=== PATIENT | female | born 1955 | race Asian ===

== ENCOUNTER 2018-05-09 09:39 | Outpatient (CLI) | payer BC | END 2018-05-09 23:39 | disposition home or self-care (01) | LOC: MAMMO 09:39 | DX: Z12.31 Encounter for screening mammogram for malignant neoplasm of breast (principal) ==

== ENCOUNTER 2019-08-09 08:39 | Outpatient (CLI) | payer BC | END 2019-08-09 20:37 | disposition home or self-care (01) | LOC: MAMMO 08:39 | DX: Z12.31 Encounter for screening mammogram for malignant neoplasm of breast (principal) ==

== ENCOUNTER 2023-07-18 15:20 | Outpatient (CLI) | payer MEDICARE | END 2023-07-18 19:19 | disposition home or self-care (01) | LOC: RAD 15:20 | PROVIDERS: ATTEND Internal Medicine | DX: M25.522 Pain in left elbow (principal) ==